=== PATIENT | female | born 1965 | race Hispanic/Latino ===

== ENCOUNTER 2017-08-27 22:32 | Emergency (ER) | payer SELFPAY ==
[2017-08-27] MEDS ORDERED: CLEOCIN 600 MG/50 mL 600 MG/50 ML BAG IV ONE (22:58)
[2017-08-27] MEDS ORDERED: TORADOL IV ONE (22:58)
[2017-08-27] MEDS ORDERED: NACL 0.9% 500 ML 500 ML IV ONE (22:59)
--- NOTE | 2017-08-27 22:59 | Emergency Department Report ---
ED ENT HPI - General Chief complaint: Skin/Abscess/Foreign Body Stated complaint: RT FACE SWOLLEN Time Seen by Provider: 08/27/17 22:57 Source: patient Mode of arrival: Ambulatory Limitations: No Limitations - History of Present Illness Initial comments: 52-year-old female asked medical history severe periodontal disease, multiple cavities presents with complaint of right-sided facial swelling worsening since early yesterday. Denies fevers or chills denies nausea or vomiting denies pus or blood drainage from mouth. No visible trismus or drooling but patient has visible right-sided cheek/facial swelling below right eye and right malar region. MD complaint: tooth pain, other (right sided facial swelling) Onset/Timin -: days(s) Severity scale (0 -10): 6 Quality: burning, aching, constant Consistency: constant Context- Dental: history of dental caries Associated Symptoms: toothache - Related Data Allergies Allergy/AdvReac Type Severity Reaction Status Date / Time Penicillins Allergy Anaphylaxis Verified 08/27/17 22:57 ED Dental HPI - General Chief complaint: Skin/Abscess/Foreign Body Stated complaint: RT FACE SWOLLEN Time Seen by Provider: 08/27/17 22:57 Source: patient Mode of arrival: Ambulatory Limitations: No Limitations - Related Data Allergies Allergy/AdvReac Type Severity Reaction Status Date / Time Penicillins Allergy Anaphylaxis Verified 08/27/17 22:57 ED Review of Systems ROS: Stated complaint: RT FACE SWOLLEN Other details as noted in HPI ED Past Medical Hx - Past Medical History Previous Medical History?: Yes Additional medical history: tooth abcess - Surgical History Past Surgical History?: No - Social History Smoking Status: Never Smoker ED Physical Exam - General Limitations: No Limitations General appearance: alert, in no apparent distress - Head Head exam: Present: atraumatic, normocephalic - Expanded Head Exam Expanded 1 - facial swelling here - Eye Eye exam: Present: normal appearance - ENT ENT exam: Present: mucous membranes moist - Expanded ENT Exam Expanded Teeth exam: Present: dental caries (patient has severe periodontal disease and multiple cavities along all teeth in upper and lower rows worse on right than left), gingival enlargement 1 - Dental Tenderness (severe cavities here) - Neck Neck exam: Present: normal inspection, full ROM - Respiratory Respiratory exam: Present: normal lung sounds bilaterally. Absent: respiratory distress - Cardiovascular Cardiovascular Exam: Present: regular rate, normal rhythm. Absent: systolic murmur, diastolic murmur, rubs, gallop - GI/Abdominal GI/Abdominal exam: Present: soft, normal bowel sounds - Extremities Exam Extremities exam: Present: normal inspection - Back Exam Back exam: Present: normal inspection - Neurological Exam Neurological exam: Present: alert, oriented X3 - Psychiatric Psychiatric exam: Present: normal affect, normal mood - Skin Skin exam: Present: warm, dry, intact, normal color. Absent: rash ED Course Vital Signs 08/27/17 22:48 Temperature 97.3 F L Pulse Rate 88 Respiratory 14 Rate Blood Pressure 170/94 O2 Sat by Pulse 100 Oximetry ED Medical Decision Making - Lab Data Result diagrams: 08/27/17 23:21 08/27/17 23:21 - Medical Decision Making A/P: Left-sided facial cellulitis, dental cavities, periodontal disease 1-CT scan face with contrast shows no abscess 2-discussed with Dr. Suarez who also examined the patient 3-day course of clindamycin, Motrin when necessary, [place] when necessary Orajel when necessary, Peridex mouthwash daily basis. I provided patient with information for multiple dental clinics to follow up and stressed the importance of dental follow-up as he has multiple cavities that require dental fixation or instrumentation. No clinical signs of Yuval's angina, no induration or cellulitis of floor of mouth or tongue. I advised patient that if she does not take antibiotics with follow-up with a dentist as soon as possible that a can result in potentially serious or dangerous infection to develop in jaw . Patient states that he understood these instructions. I advised patient to return to the ED for any persistent unrelenting nausea or vomiting fever or chills or headaches. NOTE THIS CHART WAS WRITTEN AND I ASSESSED THE PATIENT DURING HOSPITAL WIDE DOWNTIME, PT GIVEN HAND WRITTEN SCRIPTS FOR NROCO< MOTRIN<,PERIDEX, CLINDAMYCIN ( 10 day course) and given referral to multiple dental clinics [email or web address] Critical care attestation.: If time is entered above; I have spent that time in minutes in the direct care of this critically ill patient, excluding procedure time. ED Disposition Clinical Impression: Facial cellulitis Disposition: DC-01 TO HOME OR SELFCARE Is pt being admited?: No Does the pt Need Aspirin: No Condition: Stable Instructions: Cellulitis (ED) Referrals: [facility] [Outside] - 3-5 Days Time of Disposition: 06:44
[2017-08-28 00:11] LABS: Basophils % (Auto) 0.8 % (0.0-1.8); Eosinophils % (Auto) 0.6 % (0.0-4.3); Hematocrit 46.1 % (30.3-42.9); Hemoglobin 14.8 gm/dl (10.1-14.3); Mean Corpuscular HGB Conc 32 % (30-34); Mean Corpuscular Hemoglobin 29 pg (28-32); Mean Corpuscular Volume 90 fl (79-97); Platelet Count 386 K/mm3 (140-440); Red Blood Count 5.11 M/mm3 (3.65-5.03); Red Cell Distribution Width 13.9 % (13.2-15.2); White Blood Count 16.7 K/mm3 (4.5-11.0)
[2017-08-28 00:32] LABS: BUN/Creatinine Ratio 35; Blood Urea Nitrogen 21 mg/dL (7-17); Carbon Dioxide 19 mmol/L (22-30); Glucose 87 mg/dL (65-100)
[2017-08-28 00:33] LABS: Chloride 97.1 mmol/L (98-107); Potassium 4.4 mmol/L (3.6-5.0); Sodium 135 mmol/L (137-145)
[2017-08-28 00:42] LABS: Anion Gap 23 mmol/L
[2017-08-28] MEDS ORDERED: NORCO 5/325 PO ONE ×2 (03:00→04:00)
[2017-08-28] MEDS ORDERED: NORCO 5/325 ONE ×2 (03:09→04:09)
[2017-08-28] MEDS ORDERED: ZOFRAN ODT ONE (03:09)
--- NOTE | 2017-08-28 04:03 | Cat Scan Report ---
FINAL REPORT PROCEDURE: CT FACIAL BONES W CON TECHNIQUE: Computerized tomography of the facial bones and soft tissues with axial and coronal sections performed from the cranial aspect of the frontal sinuses to the caudal portion of the mandible without contrast material. HISTORY: ? right sided facial abscess/jaw abscess COMPARISON: No prior studies are available for comparison. FINDINGS: There is right facial subcutaneous soft tissue swelling. This is consistent with cellulitis. There is no discrete mass or abscess. There is reactive right submandibular lymphadenopathy. The paranasal sinuses are clear. There are no air-fluid levels. The mandible and temporomandibular joints are intact. Zygomatic arches, nasal bone, anterior maxillary spine and bony orbital thacker are intact. There is no intraorbital pathology. There is normal vascular enhancement. IMPRESSION: Right facial cellulitis. No discrete mass or abscess is seen. There is reactive right submandibular lymphadenopathy. There is no acute bony abnormality.
[2017-08-28 06:51] VITALS: BP 138/82
== END 2017-08-28 04:20 | disposition home or self-care (01) ==
LOC: ED 22:32
DX: L03.211 Cellulitis of face (principal); Z88.0 Allergy status to penicillin
CPT/HCPCS: 36415; 70487; 80048; 82140; 85025; 87040; 96361; 96365; 96375; 99284; J1885; J7040; Q9967; Q0162